=== PATIENT | female | born 1975 | race Caucasian/White ===

== ENCOUNTER 2016-07-17 12:34 | Emergency (ER) | payer OTHER ==
[~2016-07-17] VITALS: Ht 162.6 cm; Wt 77.1 kg
[2016-07-17 12:38] VITALS: BP 127/87
--- NOTE | 2016-07-17 12:38 | ED CARDIAC/CP/PALPITATIONS ---
History of Present Illness General Chief Complaint: General Adult Stated Complaint: PALPITATIONS PER PT Source: patient, old records Exam Limitations: no limitations Vital Signs & Intake/Output Vital Signs & Intake/Output Vital Signs Date Time Temp Pulse Resp B/P Pulse O2 O2 Flow FiO2 Ox Delivery Rate 07/17 1252 Room Air Room Air 07/17 1238 96.8 87 18 127/87 98 Room Air ED Intake and Output 07/18 0000 07/17 1200 Intake Total 0 Output Total Balance 0 Intake, Oral 0 Patient 170 lb Weight Allergies Coded Allergies: No Known Allergies (07/17/16) Triage Nurses Notes Reviewed? yes Onset: Abrupt Duration: week(s): (1), intermittent Timing: recent history Quality/Severity: mild, moderate, aching Location: substernal Radiation: jaw Activities at Onset: more frequent after drinking caffeeine Nitro Today/Relief: no nitro taken today Aspirin Today: no aspirin today Associated Symptoms: denies HPI: 41-year-old female history mitral valve prolapse currently not on any medication presents emergency room complaining of an intermittent history of palpitations and substernal chest pain that is nonradiating and described as an aching tightness that comes and goes randomly however more so frequent after drinking caffeine. The patient denies dizziness lightheadedness. She denies any symptoms at this time other than palpitations. No recent cough shortness of breath hemoptysis like swelling. There is no pain with inspiration. She does not smoke no abdominal pain nausea vomiting or diarrhea. no other Modifying factors or associated symptoms otherwise. (KIERA GO) Past History Travel History Traveled to [place] past 21 day No Medical History Any Pertinent Medical History? see below for history Cardiovascular: mitral valve prolapse Surgical History Surgical History: non-contributory Psychosocial History Tobacco Use: Never used Family History Hx Contributory? No (KIERA GO) Review of Systems Review of Systems Constitutional: Reports: see HPI. All Other Systems: Reviewed and Negative Comments Review of systems: See HPI, All other systems negative. Constitutional, no chills no fever, no malaise HEENT: No visual changes no sore throat no congestion Cardiovascular:chest pain , palpitation Skin, no jaundice no rashes, no change in skin Respiratory: No dyspnea no cough no sputum GI: No nausea no vomiting, no diarrhea, : No dysuria Muscle skeletal: No joint pain, no joint swelling, no back pain, no neck pain, Neurologic: No numbness no headache Psych: No stress Heme/endocrine: No bruising no bleeding Immunology: No lymphadenopathy (KIERA GO) Physical Exam Physical Exam General Appearance: well developed/nourished, alert, awake Cardiovascular: regular rate/rhythm Comments: Well-developed well-nourished person in no acute distress HEENT: Normal EENT exam; PERRL, EOMI, no nystagmus. HEAD is atraumatic. moist mucous membranes. Neck: Supple, normal range of motion Back: Nontender, no CVA tenderness. Full range of motion Cardiovascular: Regular rate and rhythms no murmurs rubs Respiratory: Chest nontender.There were no bony deformities, no asymmetry. No respiratory distress. Patient speaking in full complete sentences. Breath sounds clear to auscultation bilaterally: NO W/R/R Abdomen: Soft, nontender nondistended, no appreciable organomegaly. Normal bowel sounds. No rebound/guarding, Extremity: No edema, full range of motion of extremities Neuro: Alert oriented x3, motor sensory normal, There were no obvious focal neurologic abnormalities. Skin: No appreciable rash on exposed skin, skin is warm and dry. Psych: Mood and affect is normal, memory and judgment is normal. Core Measures ACS in differential dx? Yes Severe Sepsis Present: No Septic Shock Present: No All Positive = PERC Ruled Out: Positive: age < 50 years, heart rate < 100 bpm, O2 sat > 94%, no hemoptysis, no hormone use, no prior DVT or PE, no unilateral leg swellin, no surgery/trauma w/ in 4w. (KIERA GO) Progress Differential Diagnosis: AMI, aortic dissection, atrial fibrillation, CHF/pulm edema, costochondritis, musculoskeletal pain, myocarditis, pancreatitis, pericarditis, pneumothorax, PSVT, pulmonary embolism, unstable angina, V-fib/V- Tach Plan of Care: Orders Procedure Date/time Status TROPONIN LEVEL 07/17 1235 Complete CBC WITHOUT DIFFERENTIAL 07/17 1235 Complete BASIC METABOLIC PANEL 07/17 1235 Complete EKG 07/17 1235 Active Laboratory Tests 07/17/16 1245: Anion Gap 14, Estimated GFR > 60, BUN/Creatinine Ratio 21.4, Glucose 96, Calcium 10.0, Troponin I < 0.01, CBC w Diff NO MAN DIFF REQ, RBC 4.94, MCV 87.9, MCH 29.0, RDW 14.0, MPV 8.2, Gran % 56.5, Lymphocytes % 32.4, Monocytes % 6.8, Eosinophils % 3.6, Basophils % 0.7, Absolute Granulocytes 5.2, Absolute Lymphocytes 3.0, Absolute Monocytes 0.6, Absolute Eosinophils 0.3, Absolute Basophils 0.1, PUBS MCHC 33.0 Patient denies any symptoms at this time symptoms seem to occur more so after drinking caffeine. Labs ordered old records reviewed case discussed with Dr. alcala Discussed with the patient all her lab results, symptoms present for greater than 24 hours intermittent in nature need for close follow-up with her primary care physician need to limit caffeine intake, answered all of her questions she feels comfortable to explain patient is a symptomatically at this time cleared for discharge (KIERA GO) Initial ED EKG: normal intervals, normal p-waves, normal QRS complex, normal sinus rhythm (80) (KIERA GO) Departure Departure Disposition: HOME OR SELF CARE Condition: Stable Clinical Impression Primary Impression: Chest pain Secondary Impressions: Heart palpitations Referrals: ELLA SARMIENTO,[facility] Additional Instructions: limit caffeine intake. tylenol or motrin as needed for pain. follow up with your pmd as well as shift mechanic dr leahy. return to the ER at anytime sooner with any concerns Departure Forms: Customer Survey General Discharge Information (KIERA GO) PA/ETHANOL OPERATIONS MANAGER Co-Sign Statement Statement: ED Attending supervision documentation- [] I saw and evaluated the patient. I have also reviewed all the pertinent lab results and diagnostic results. I agree with the findings and the plan of care as documented in the PA's/ETHANOL OPERATIONS MANAGER's documentation. [X] I have reviewed the ED Record and agree with the PA's/ETHANOL OPERATIONS MANAGER's documentation. [] Additions or exceptions (if any) to the PAs/ETHANOL OPERATIONS MANAGER's note and plan are summarized below: [] (NICOLE SARMIENTO,N[place]OL[place]S) Critical Care Note Critical Care Note Critical Care Time: non-applicable (KIERA GO)
[2016-07-17 12:57] LABS: ABSOLUTE BASOPHIL COUNT 0.1 /CUMM (0.0-0.2); ABSOLUTE EOSINOPHIL COUNT 0.3 /CUMM (0.0-0.7); ABSOLUTE GRANULOCYTE CT 5.2 /CUMM (1.4-6.5); ABSOLUTE MONOCYTE COUNT 0.6 /CUMM (0.10-0.60); BASOPHIL % 0.7 % (0.0-2.0); EOSINOPHIL % 3.6 % (0-5); GRANULOCYTE % 56.5 % (42.2-75.2); HEMATOCRIT 43.5 % (37-47); MEAN CORPUSCULAR VOLUME 87.9 FL (81.0-99.0); MEAN PLATELET VOLUME 8.2 FL (7.4-10.4); PLATELET COUNT 316 /CUMM (130-400); RED BLOOD CELL CT 4.94 /CUMM (4.20-5.40); WHITE BLOOD CELL COUNT 9.2 /CUMM (4.8-10.8)
== END 2016-07-17 13:34 ==
LOC: ERH 12:34
PROVIDERS: Physician Assistant Medical
DX: R07.2 Precordial pain (principal); R00.2 Palpitations
CPT/HCPCS: 93005; 93010